=== PATIENT | female | born 1975 | race Caucasian/White ===

== ENCOUNTER 2017-11-15 18:20 | Emergency (ER) | payer MEDICAID ==
[~2017-11-15] VITALS: Ht 152.4 cm; Wt 98.9 kg
[2017-11-15 18:28] VITALS: BP_SYST 145
[2017-11-15 19:09] LABS: HEMATOCRIT 39.9 % (36-48); HEMOGLOBIN 13.3 g/dL (12.0-16.0); MEAN CORPUSCULAR HEMOGLOBIN 30 pg (27-31); MEAN CORPUSCULAR HGB CONC 33 % (32-36); MEAN CORPUSCULAR VOLUME 91 fL (79.0-98.0); PLATELET COUNT (AUTO) 286 K/uL (130-430); RED BLOOD CELL COUNT(AUTO) 4.41 MIL/uL (4.2-6.2); RED CELL DISTRIBUTION WIDTH 12.6 % (9.0-15.0); WHITE BLOOD COUNT (AUTO) 12.5 K/uL (4.8-10.8)
[2017-11-15 19:19] LABS: BILIRUBIN,URINE NEGATIVE (NEGATIVE); BLOOD, URINE NEGATIVE (NEGATIVE); CLARITY/URINE CLEAR (CLEAR); COLOR,URINE YELLOW (YELLOW); GLUCOSE,URINE NEGATIVE (NEGATIVE); KETONES,URINE NEGATIVE (NEGATIVE); LEUKOCYTE ESTERASE ,URINE NEGATIVE (NEGATIVE); NITRITE, URINE NEGATIVE (NEGATIVE); PH,URINE 5.5 (5.0-8.0); PROTEIN URINE NEGATIVE (NEGATIVE); UROBILINOGEN,URINE 0.2 (0.2-1.0)
[2017-11-15 19:22] LABS: CALCIUM 8.7 mg/dL (8.4-11.0); CREATININE 0.64 mg/dL (0.55-1.30); POTASSIUM 4.4 mmol/L (3.5-5.1)
[2017-11-15 19:32] LABS: ALBUMIN 3.5 g/dL (3.4-4.8); TOTAL BILIRUBIN 0.5 mg/dL (0.0-1.0)
[2017-11-15 19:41] LABS: BAND % (MANUAL) 7 % (0-6); BASOPHILS % (MANUAL) 0 % (0-2); EOSINOPHILS % (MANUAL) 0 % (0-7); LYMPHOCYTES % (MANUAL) 17 % (20-46); MONOCYTES % (MANUAL) 4 % (0-11)
[2017-11-15 20:30] VITALS: BP_SYST 134
== END 2017-11-15 20:30 | disposition home or self-care (01) ==
LOC: SED 18:20
DX: K52.9 Noninfective gastroenteritis and colitis, unspecified (principal); K59.00 Constipation, unspecified; Z88.0 Allergy status to penicillin; Z98.51 Tubal ligation status
CPT/HCPCS: 36415; 74021; 80053; 81003; 83690-TC; 85007; 85027; 99285